=== PATIENT | male | born 1960 | race Caucasian/White ===

== ENCOUNTER 2024-05-26 15:38 | Inpatient (IN) | payer MEDICARE ==
[~2024-05-26] VITALS: Ht 180.3 cm; Wt 104.5 kg
[2024-05-26 17:01] LABS: BASOPHILS # (AUTO) 0.1 X10'3 (0-0.2); BASOPHILS % (AUTO) 0.3 % (0-1); EOSINOPHILS % (AUTO) 0 % (0-6); HEMATOCRIT 42.1 % (42.0-52.0); HEMOGLOBIN 13.8 g/dl (14.0-17.9); LYMPHOCYTES # (AUTO) 0.9 X10'3 (1.1-4.8); LYMPHOCYTES % (AUTO) 4.3 % (21-51); MEAN CORPUSCULAR HEMOGLOBIN 30.1 PG (27.0-31.0); MEAN CORPUSCULAR HGB CONC 32.8 g/dL (33.0-36.5); MEAN CORPUSCULAR VOLUME 91.8 FL (78-98); MEAN PLATELET VOLUME 8.2 FL (7.4-10.4); MONOCYTES # (AUTO) 1.4 X10'3 (0-0.9); MONOCYTES % (AUTO) 7.1 % (2-12); NEUTROPHILS # (AUTO) 17.5 X10'3 (1.8-7.7); NEUTROPHILS % (AUTO) 88.3 % (42-75); PLATELET COUNT 270 X10'3 (140-440); RED BLOOD COUNT 4.58 X10'6 (4.70-6.10); RED CELL DISTRIBUTION WIDTH 13.6 % (11.5-14.5); WHITE BLOOD COUNT 19.8 X10'3 (4.5-11.0)
[2024-05-26 17:24] LABS: ALBUMIN 2.6 G/DL (3.4-5.0); ANION GAP 9 (8-16); BLOOD UREA NITROGEN 14 MG/DL (7-18); BUN/CREATININE RATIO 11.2 (10.0-20.0); CALCIUM 8.3 MG/DL (8.5-10.1); CHLORIDE 96 MMOL/L (99-107); CREATININE 1.25 MG/DL (0.60-1.10); GLUCOSE 140 MG/DL (70-104); POTASSIUM 4.1 MMOL/L (3.5-5.1); PRO BRAIN NATRIURETIC PEPTIDE 2708 PG/ML (0-125); SODIUM 132 MMOL/L (135-145); TOTAL CARBON DIOXIDE 27.1 MMOL/L (24-32); eCRCL 65 ML/MIN; eGFR 59 ML/MIN
[2024-05-26] MEDS ORDERED: acetaminophen 325mg tablet PO ONE (17:35)
[2024-05-26] MEDS ORDERED: vancomycin/NS 1 GM ADD-VANTAGE 250 ML X 1 DOSE IV ONE (17:40)
[2024-05-26] MEDS ORDERED: ondansetron/PF 4mg/2ml inj IV PRN (17:50)
[2024-05-26] MEDS ORDERED: magnesium sulf-water 4G/100mL 100 ML IV PRN (17:50)
[2024-05-26] MEDS ORDERED: acetaminophen 325mg tablet PO PRN (17:50)
[2024-05-26] MEDS ORDERED: potassium Cl 40MEQ/1/2NS 520ml 520 ML IV PRN (17:50)
[2024-05-26] MEDS ORDERED: magnesium Cl slow-release 64mg tablet PO PRN (17:50)
[2024-05-26] MEDS ORDERED: potassium Cl 20 mEq SR tablet PO PRN ×2 (17:50)
[2024-05-26] MEDS ORDERED: magnesium sulf-water 2g/50mL 50 ML IV PRN (17:50)
[2024-05-26] MEDS ORDERED: morphine 2 MG/ML inj. syringe IV PRN (17:50)
[2024-05-26] MEDS: furosemide 10 MG/1 ML 10ml inj IV ONE (18:10)
[2024-05-26] MEDS: VANCOMYCIN 2GM/400ML H20 (PEG) 400 ML IV ONE (18:10)
[2024-05-26] MEDS: acetaminophen 325mg tablet PO ONE (18:10)
[2024-05-26] MEDS: PERFLUTREN PROTEIN-A MICROSPHR (Optison) 0.22 MG/ML 3ML VIAL IV ONE (18:19)
[2024-05-26 18:42] LABS: BILIRUBIN,URINE NEGATIVE (Neg); CLARITY,URINE CLEAR (Clear); COLOR,URINE YELLOW (Yellow); GLUCOSE, URINE NEGATIVE (Neg); KETONES,URINE NEGATIVE (Neg); LEUKOCYTE ESTERASE ,URINE NEGATIVE (Neg); NITRITES, URINE NEGATIVE (Neg); OCCULT BLOOD,URINE TRACE-INTACT (Neg); PROTEIN,URINE 100 mg/dl (Neg)
[2024-05-26 18:49] LABS: UA COLLECTION TYPE URINAL
[2024-05-26 18:51] LABS: BACTERIA,URINE NONE SEEN /HPF (Neg); MUCUS STRANDS FEW /LPF (Neg); RBC,URINE 0-2 /HPF (0-2); SQUAMOUS EPITHELIAL CELL,UR FEW /LPF (FEW); WBC,URINE NONE SEEN /HPF (0-4)
[2024-05-26] MEDS: K and/or MAG REPLACEMENT MC SCH (20:00)
[2024-05-26] MEDS ORDERED: NO HOME MEDS (20:33)
[2024-05-26 21:40] VITALS: BP 161/81; PULSE 91; RESP 18; TEMP 98.7; O2SAT 92
[2024-05-26] MEDS: piperacillin/tazo 4.5gm/100ml 100 ML IV SCH (21:54)
[2024-05-27 06:00] VITALS: BP 166/74; PULSE 100; RESP 18; TEMP 98; O2SAT 94
[2024-05-27 06:13] LABS: BASOPHILS % (AUTO) 0.2 % (0-1); EOSINOPHILS % (AUTO) 0.1 % (0-6); HEMATOCRIT 38.8 % (42.0-52.0); HEMOGLOBIN 12.8 g/dl (14.0-17.9); LYMPHOCYTES % (AUTO) 5.9 % (21-51); MEAN CORPUSCULAR HEMOGLOBIN 30.4 PG (27.0-31.0); MEAN CORPUSCULAR VOLUME 92.1 FL (78-98); MEAN PLATELET VOLUME 8.2 FL (7.4-10.4); MONOCYTES # (AUTO) 1.4 X10'3 (0-0.9); MONOCYTES % (AUTO) 8.5 % (2-12); NEUTROPHILS # (AUTO) 14.3 X10'3 (1.8-7.7); NEUTROPHILS % (AUTO) 85.3 % (42-75); PLATELET COUNT 233 X10'3 (140-440); RED BLOOD COUNT 4.21 X10'6 (4.70-6.10); RED CELL DISTRIBUTION WIDTH 13.2 % (11.5-14.5); WHITE BLOOD COUNT 16.7 X10'3 (4.5-11.0)
[2024-05-27 06:58] LABS: ALBUMIN 2.1 G/DL (3.4-5.0); ANION GAP 8 (8-16); BLOOD UREA NITROGEN 19 MG/DL (7-18); BUN/CREATININE RATIO 13.5 (10.0-20.0); CALCIUM 8.3 MG/DL (8.5-10.1); CHLORIDE 98 MMOL/L (99-107); CREATININE 1.41 MG/DL (0.60-1.10); GLUCOSE 150 MG/DL (70-104); MAGNESIUM 1.9 MG/DL (1.5-2.4); POTASSIUM 3.5 MMOL/L (3.5-5.1); SODIUM 136 MMOL/L (135-145); TOTAL CARBON DIOXIDE 29.6 MMOL/L (24-32); eCRCL 58 ML/MIN; eGFR 51 ML/MIN
[2024-05-27] MEDS: VANCOMYCIN/WATER FOR INJ (PEG) 1.25GM/250 ML IVPB IV SCH (07:02)
[2024-05-27] MEDS: furosemide 10 MG/1 ML 10ml inj IV SCH (07:08)
[2024-05-27 10:00] VITALS: BP 166/89; PULSE 89; RESP 19; TEMP 98.2; O2SAT 91
[2024-05-27 18:00] VITALS: BP 149/78; PULSE 92; RESP 15; TEMP 98.4; O2SAT 94
[2024-05-27] MEDS: vancomycin/NS 1 GM ADD-VANTAGE 250 ML IV SCH (19:25)
[2024-05-27] MEDS: HYDROcodone/acetaminophen 5mg/325mg tablet PO PRN (21:19)
[2024-05-27 22:00] VITALS: BP 158/89; PULSE 83; RESP 20; TEMP 99.2; O2SAT 96
[2024-05-28 06:00] VITALS: BP 165/98; PULSE 74; RESP 19; TEMP 97.8; O2SAT 96
[2024-05-28] MEDS ORDERED: VANCOMYCIN LEVEL IV ONE (07:30)
[2024-05-28 08:03] LABS: BASOPHILS % (AUTO) 0.3 % (0-1); EOSINOPHILS # (AUTO) 0.1 X10'3 (0-0.9); EOSINOPHILS % (AUTO) 0.8 % (0-6); HEMATOCRIT 39.5 % (42.0-52.0); HEMOGLOBIN 12.9 g/dl (14.0-17.9); LYMPHOCYTES # (AUTO) 1.2 X10'3 (1.1-4.8); MEAN CORPUSCULAR HGB CONC 32.8 g/dL (33.0-36.5); MEAN CORPUSCULAR VOLUME 91.6 FL (78-98); MEAN PLATELET VOLUME 8.2 FL (7.4-10.4); MONOCYTES # (AUTO) 1.3 X10'3 (0-0.9); MONOCYTES % (AUTO) 10.9 % (2-12); PLATELET COUNT 278 X10'3 (140-440); RED BLOOD COUNT 4.31 X10'6 (4.70-6.10); RED CELL DISTRIBUTION WIDTH 13.7 % (11.5-14.5); WHITE BLOOD COUNT 11.5 X10'3 (4.5-11.0)
[2024-05-28 08:11] LABS: ALBUMIN 2.2 G/DL (3.4-5.0); ANION GAP 7 (8-16); BLOOD UREA NITROGEN 21 MG/DL (7-18); CALCIUM 8.8 MG/DL (8.5-10.1); CHLORIDE 101 MMOL/L (99-107); CREATININE 1.05 MG/DL (0.60-1.10); GLUCOSE 115 MG/DL (70-104); MAGNESIUM 2.3 MG/DL (1.5-2.4); POTASSIUM 3.5 MMOL/L (3.5-5.1); SODIUM 137 MMOL/L (135-145); TOTAL CARBON DIOXIDE 29.2 MMOL/L (24-32); VANCOMYCIN,TROUGH 10.9 ug/mL (10.0-20.0); eCRCL 78 ML/MIN; eGFR 72 ML/MIN
[2024-05-28 10:00] VITALS: BP 144/86; PULSE 84; RESP 16; TEMP 98.5; O2SAT 94
[2024-05-28 10:30] VITALS: RESP 16; O2SAT 94
[2024-05-28] MEDS: VANCOMYCIN/WATER FOR INJ (PEG) 1.25GM/250 ML IVPB IV SCH (12:27)
[2024-05-28] MEDS ORDERED: ASPI81TA52 PO (15:46)
[2024-05-28] MEDS ORDERED: LISI1TAB51 PO (15:46)
[2024-05-28] MEDS ORDERED: CEPH500T PO (15:46)
[2024-05-29] MEDS ORDERED: VANCOMYCIN LEVEL IV ONE (20:30)
== END 2024-05-28 17:56 | disposition home or self-care (01) | DRG 871 ==
LOC: ER 15:40 → ED HOLD 17:49 → ORTHO 4S 21:05
PROVIDERS: ADMIT Internal Medicine; ATTEND Internal Medicine
DX: A41.9 Sepsis, unspecified organism (principal); I21.A1 Myocardial infarction type 2; I50.33 Acute on chronic diastolic (congestive) heart failure; L03.116 Cellulitis of left lower limb; L03.115 Cellulitis of right lower limb; I11.0 Hypertensive heart disease with heart failure; R65.20 Severe sepsis without septic shock
CPT/HCPCS: 36415; 71045; 80048; 80202; 81001; 83605; 83735; 83880; 84145; 84484; 85025; 87040; 87081; 93005; 93306; 96361; 96365; 96367; 97116; 97161; 97530; 99291; A6258; A6449; G0378; J1940; J2543; J3370; J3372; J7040